=== PATIENT | male | born 1960 | race Caucasian/White ===

== ENCOUNTER → 2017-01-03 | Outpatient (CLI) | payer OTHER | END | disposition home or self-care (01) | LOC: CVU 14:13 | PROVIDERS: ATTEND Internal Medicine Cardiovascular Disease | DX: I08.3 Combined rheumatic disorders of mitral, aortic and tricuspid valves (principal); I37.1 Nonrheumatic pulmonary valve insufficiency; I51.7 Cardiomegaly; I10 Essential (primary) hypertension | CPT/HCPCS: 93306; 94060; 94726; 94729 ==

== ENCOUNTER → 2017-10-23 | Outpatient (CLI) | payer OTHER ==
[~2017-10-23] MED LIST: CYSTO CONRAY II 250 ML VIAL UR ONE; HYDR-3240 PO; LABE200T3 PO
== END | disposition home or self-care (01) ==
LOC: RAD 08:49
PROVIDERS: ATTEND Urology
DX: N13.5 Crossing vessel and stricture of ureter without hydronephrosis (principal); Q64.6 Congenital diverticulum of bladder
CPT/HCPCS: 74430; Q9958

== ENCOUNTER 2020-12-14 07:23 | Outpatient (CLI) | payer OTHER ==
[~2020-12-14 07:23] MED LIST changes: -CYSTO CONRAY II 250 ML VIAL UR ONE; +HYDR-2214 PO; -HYDR-3240 PO; -LABE200T3 PO; +LABE200T6 PO
[2020-12-14] MEDS ORDERED: OMNIPAQUE 350 MG/ML, 50 ML BOTTLE ONE (08:30)
[2020-12-14] MEDS ORDERED: LIDOCAINE GEL 2%, 5ML ONE (08:47)
== END 2020-12-14 23:59 | disposition home or self-care (01) ==
LOC: RAD 07:23
PROVIDERS: ATTEND Physician Assistant
DX: N49.2 Inflammatory disorders of scrotum (principal); N50.82 Scrotal pain; I86.1 Scrotal varices; Z79.899 Other long term (current) drug therapy; Z88.0 Allergy status to penicillin; Z72.89 Other problems related to lifestyle
CPT/HCPCS: 51610; 74450; 76870; Q9967

== ENCOUNTER 2021-02-17 17:43 | Emergency (ER) | payer OTHER ==
[~2021-02-17] VITALS: Ht 182.9 cm; Wt 110.4 kg
--- NOTE | 2021-02-17 20:47 | NUR ---
REVITALS [email or web address], BP [phone]
--- NOTE | 2021-02-17 21:05 | NUR ---
PT AMBULATORY WITH STEADY GAIT FROM LOBBY TO ED ROOM 39
[2021-02-17 21:28] LABS: BASOPHILS % (AUTO) 0 % (0-1); EOSINOPHILS % (AUTO) 1 % (1-7); LYMPHOCYTES % (AUTO) 24 % (22-44); MEAN CORPUSCULAR HEMOGLOBIN 30.3 pg (27.5-34.5); MEAN CORPUSCULAR HGB CONC 33.6 g/dL (33.2-36.2); MEAN PLATELET VOLUME 7.8 fL (7.4-10.4); MONOCYTES % (AUTO) 11 % (2-9); NEUTROPHILS % (AUTO) 65 % (42-75); PLATELET COUNT 214 x10^3/uL (130-400); RED BLOOD COUNT 5.06 x10^6/uL (4.38-5.82); RED CELL DISTRIBUTION WIDTH 14.5 % (9.4-14.8)
[2021-02-17 21:39] LABS: ALANINE AMINOTRANSFERASE 42 U/L (12-78); ALBUMIN 3.8 g/dL (3.4-5.0); ANION GAP 6 mmol/L (5-15); CALCIUM 8.8 mg/dL (8.5-10.1); CHLORIDE 107 mmol/L (98-107); CREATININE 1.03 mg/dL (0.7-1.3)
[2021-02-17 21:43] LABS: ALKALINE PHOSPHATASE 75 U/L (45-117); BILIRUBIN,TOTAL 0.9 mg/dL (0.2-1.0); TROPONIN I < 0.015 ng/mL (0.000-0.045)
[2021-02-17] MEDS ORDERED: FAMOTIDINE 20 MG TABLET ONE (21:53)
[2021-02-17] MEDS ORDERED: MAALOX/HYOSCYAMINE/LIDOCAINE 45 ML BTL ONE (21:53)
[2021-02-17] MEDS ORDERED: MAALOX/HYOSCYAMINE/LIDOCAINE 45 ML BTL PO ONE (22:00)
[2021-02-17] MEDS ORDERED: FAMOTIDINE 20 MG TABLET PO ONE (22:00)
[2021-02-17 22:38] VITALS: BP 164/97
--- NOTE | 2021-02-17 22:38 | NUR ---
TASK RN: RICARDO AT BEDSIDE TO UPDATE PT ON POC.
== END 2021-02-17 22:45 | disposition home or self-care (01) ==
LOC: ED 21:14
DX: I10 Essential (primary) hypertension (principal); R42 Dizziness and giddiness; R94.31 Abnormal electrocardiogram [ECG] [EKG]
CPT/HCPCS: 36415; 80053; 84484; 85025; 93005; 99285

== ENCOUNTER → 2021-03-14 | Outpatient (CLI) | payer OTHER | END | disposition home or self-care (01) | LOC: CVU 07:19 | PROVIDERS: ATTEND Student in an Organized Health Care Education/Training Program | DX: Z01.810 Encounter for preprocedural cardiovascular examination (principal); I11.9 Hypertensive heart disease without heart failure; I08.2 Rheumatic disorders of both aortic and tricuspid valves | CPT/HCPCS: 93306 ==

== ENCOUNTER → 2021-04-06 | Outpatient (CLI) | payer OTHER ==
[~2021-04-06] MED LIST changes: +REGADENOSON 0.4 MG/5 ML SYRINGE ONE
== END | disposition home or self-care (01) ==
LOC: CFH 12:20
PROVIDERS: ATTEND Student in an Organized Health Care Education/Training Program
DX: Z01.810 Encounter for preprocedural cardiovascular examination (principal); R06.02 Shortness of breath
CPT/HCPCS: 78452; 93017; A9502; J2785

== ENCOUNTER → 2021-04-11 | Outpatient (CLI) | payer OTHER ==
[~2021-04-11] MED LIST changes: -REGADENOSON 0.4 MG/5 ML SYRINGE ONE
== END | disposition home or self-care (01) ==
LOC: CFH 08:02
PROVIDERS: ATTEND Student in an Organized Health Care Education/Training Program
DX: E78.5 Hyperlipidemia, unspecified (principal)
CPT/HCPCS: 75571

== ENCOUNTER 2021-04-27 07:19 | Day surgery (SDC) | payer OTHER ==
[~2021-04-27] VITALS: Ht 208.3 cm; Wt 106.8 kg
[2021-04-27] MEDS ORDERED: SULF-16 PO (07:37)
[2021-04-27] MEDS ORDERED: CLON0.1T22 PO (07:37)
[2021-04-27] MEDS ORDERED: ROSU10TA2 PO (07:37)
[2021-04-27 07:47] VITALS: BP 135/85
[2021-04-27 08:17] LABS: BASOPHILS % (AUTO) 0 % (0-1); EOSINOPHILS % (AUTO) 2 % (1-7); LYMPHOCYTES % (AUTO) 24 % (22-44); MEAN CORPUSCULAR HEMOGLOBIN 29.9 pg (27.5-34.5); MEAN CORPUSCULAR HGB CONC 33.6 g/dL (33.2-36.2); MEAN PLATELET VOLUME 7.6 fL (7.4-10.4); MONOCYTES % (AUTO) 10 % (2-9); NEUTROPHILS % (AUTO) 64 % (42-75); PLATELET COUNT 211 x10^3/uL (130-400); RED BLOOD COUNT 4.97 x10^6/uL (4.38-5.82); RED CELL DISTRIBUTION WIDTH 14.3 % (9.4-14.8)
[2021-04-27 08:27] LABS: ANION GAP 4 mmol/L (5-15); CALCIUM 8.7 mg/dL (8.5-10.1); CHLORIDE 110 mmol/L (98-107); CREATININE 0.95 mg/dL (0.7-1.3)
[2021-04-27] MEDS ORDERED: LIDOCAINE 2%, 20ML ONE (09:56)
[2021-04-27] MEDS ORDERED: MIDAZOLAM 1 MG/ML, 5ML ONE (09:56)
[2021-04-27] MEDS ORDERED: FENTANYL PF 100 MCG/2ML ONE (09:56)
== END 2021-04-27 13:33 | disposition home or self-care (01) ==
LOC: CACL 07:19
PROVIDERS: ATTEND Internal Medicine Cardiovascular Disease
DX: R93.1 Abnormal findings on diagnostic imaging of heart and coronary circulation (principal); I25.118 Atherosclerotic heart disease of native coronary artery with other forms of angina pectoris; I77.1 Stricture of artery; I10 Essential (primary) hypertension; E78.5 Hyperlipidemia, unspecified; E66.9 Obesity, unspecified; Z68.32 Body mass index [BMI] 32.0-32.9, adult; Z79.899 Other long term (current) drug therapy; Z88.0 Allergy status to penicillin; Z98.890 Other specified postprocedural states
CPT/HCPCS: 36415; 80048; 85025; 93458; 99156; 99157; C1760; C1769; C1894; J2250; J3010; Q9967